=== PATIENT | female | born 1995 | race Caucasian/White ===

== ENCOUNTER 2019-01-03 22:07 | Emergency (ER) | payer OTHER ==
[2019-01-03 22:30] VITALS: BP 123/64; PULSE 80; TEMP 98.5; BMI 31.5
--- NOTE | 2019-01-03 22:52 | PDOC ---
History of Present Illness - General Chief Complaint: Back Pain Stated Complaint: BACK PAIN Time Seen by Provider: 01/03/19 22:32 - History of Present Illness Initial Comments: 01/03/19 22:47 CHIEF COMPLAINT: low back pain HISTORY OF PRESENT ILLNESS: 23 yo F presents to ED with severe low back pain that began an hour ago. Patient reports she had an epidural one month ago during delivery of her baby and since then she has had back issues. She states that she went to lift the baby an hour ago and suddenly developed severe back pain and almost could not walk. Patient denies loss of bowel or bladder function, loss of sensation to b/l legs. Patient denies . No recent travel or sick contacts. PAST MEDICAL HISTORY: Denies past medical history FAMILY HISTORY: Denies SOCIAL HISTORY: Denies tobacco, alcohol, illicit drug use. SURGICAL HISTORY: Denies ALLERGIES: No known drug allergies REVIEW OF SYSTEMS General/Constitutional: Denies fever or chills. Denies weakness, weight change. HEENT: Denies change in vision. Denies ear pain or discharge. Denies sore throat. Cardiovascular: Denies chest pain or shortness of breath. Respiratory: Denies cough, wheezing, or hemoptysis. Gastrointestinal: Denies nausea, vomiting, diarrhea or constipation. Denies rectal bleeding. Genitourinary: Denies dysuria, frequency, or change in urination. Musculoskeletal: Severe low back pain x 1 hour. Denies joint or muscle swelling or pain. Denies neck or back pain. Skin and breasts: Denies rash or easy bruising. Neurologic: Denies headache, vertigo, loss of consciousness, or loss of sensation. PHYSICAL EXAM General Appearance: Uncomfortable appearing, tearful. Appropriately dressed. No apparent distress. HEENT: EOMI, PERRLA, normal ENT inspection, normal voice, TMs normal, pharynx normal. No conjunctival pallor. No photophobia, scleral icterus. Neck: Supple. Trachea midline. No tenderness, rigidity, carotid bruit, stridor , lymphadenopathy, or thyromegaly. Respiratory/Chest: Lungs CTAB. No shortness of breath, chest tenderness, respiratory distress, accessory muscle use. No crackles, rales, rhonchi, stridor , wheezing, dullness Cardiovascular: RRR. S1, S2. No JVD, murmur, bradycardia, tachycardia. Vascular Pulses: Dorsalis-Pedis (R): 2+, Dorsalis-Pedis (L): 2+ Gastrointestinal/Abdominal: Normal bowel sounds. Abdomen soft, non-distended. No tenderness or rebound tenderness. No organomegaly, pulsatile mass, guarding , hernia, hepatomegaly, splenomegaly. Musculoskeletal/Extremities: Tenderness to midline spine and paravertebral muscles at L3-L5. Full sensation to b/l lower extremities, no saddle anesthesia. Pain with active and passive ROM to b/l legs, full ROM appreciated. Pelvis Stable. No CVA tenderness. Integumentary: Appropriate color, dry, warm. No cyanosis, erythema, jaundice or rash Neurologic: surgical scrub technician II-XII intact. Fully oriented, alert. Appropriate mood/affect. Motor strength 5/5. No appreciable EOM palsy, facial droop or sensory deficit. Past History - Past Medical History Allergies/Adverse Reactions: Allergies Allergy/AdvReac Type Severity Reaction Status Date / Time No Known Allergies Allergy Verified 01/03/19 22:25 Home Medications: Ambulatory Orders Nitrofurantoin Monohyd/M-Cryst [Macrobid -] 100 mg PO BID #14 capsule 01/04/19 COPD: No - Suicide/Smoking/Psychosocial Hx Smoking History: Never smoked Have you smoked in the past 12 months: No Information on smoking cessation initiated: No Hx Alcohol Use: No Drug/Substance Use Hx: No *Physical Exam - Vital Signs Last Vital Signs Temp Pulse Resp BP Pulse Ox 98.5 F 80 18 123/64 100 01/03/19 22:23 01/03/19 22:23 01/03/19 22:23 01/03/19 22:23 01/03/19 22:23 Medical Decision Making - Medical Decision Making 01/03/19 22:52 23 yo F presents to ED with severe low back pain that began an hour ago. 01/04/19 01:21 -toradol, valium -Lspine CT 01/04/19 01:21 UA positive for 28 WBC, will treat for UTI 01/04/19 01:[address] 01/04/19 01:34 Patient continues to be in significant pain. Will give Percocet for pain control. 01/04/19 01:57 Case discussed in detail with oncoming emergency provider including history, physical exam and ancillary studies. In brief, this patient is being seen in the ED for a chief complaint of: low back pain I have reviewed the following results: urine Pending results: CT Plan for disposition as follows: pending Resident MD Hudson has assumed care for the patient and will complete the evaluation and treatment. *DC/Admit/Observation/Transfer Diagnosis at time of Disposition: Urinary tract infection Qualifiers: Urinary tract infection type: site unspecified Hematuria presence: without hematuria Qualified Code(s): N39.0 - Urinary tract infection, site not specified Back pain Qualifiers: Back pain location: low back pain Chronicity: acute - Prescriptions Prescriptions: Nitrofurantoin Monohyd/M-Cryst [Macrobid -] 100 mg PO BID #14 capsule - Referrals - Patient Instructions - Post Discharge Activity
[2019-01-03] MEDS ORDERED: diazePAM 5 MG TABLET PO ONE (22:54)
[2019-01-03] MEDS ORDERED: KETOROLAC TROMETHAMINE 60 MG/2 ML VIAL IM ONE (22:54)
[2019-01-03] MEDS ORDERED: KETOROLAC TROMETHAMINE 60 MG/2 ML VIAL ONE (23:02)
[2019-01-03] MEDS ORDERED: diazePAM 5 MG TABLET ONE (23:03)
[2019-01-03 23:50] LABS: HYALINE CASTS 24 /lpf (0-8); URINE APPEARANCE CLEAR; URINE BACTERIA 211.2 /hpf (NEGATIVE); URINE BILIRUBIN NEGATIVE (NEGATIVE); URINE COLOR YELLOW; URINE GLUCOSE (UA) NEGATIVE (NEGATIVE); URINE KETONE NEGATIVE (NEGATIVE); URINE LEUK ESTERASE 1+ (NEGATIVE); URINE NITRITE NEGATIVE (NEGATIVE); URINE PROTEIN TRACE (NEGATIVE); URINE RBC 8 /hpf (0-4); URINE UROBILINOGEN 0.2 mg/dL (0.2-1.0); URINE WBC 28 /hpf (0-5)
--- NOTE | 2019-01-04 01:54 | PDOC ---
*Physical Exam - Vital Signs Last Vital Signs Temp Pulse Resp BP Pulse Ox 98.5 F 80 18 123/64 100 01/03/19 22:23 01/03/19 22:23 01/03/19 22:23 01/03/19 22:23 01/03/19 22:23 - Physical Exam Comments: MDM: *Reviewed vital signs, nursing notes, and prior visit documentation (if available). Received sign out from ARIES Mcmahon. In short, pt is 23 y/o female presenting for episode of acute sharp lower back pain that started after bending over. S/p spinal epidural for one month ago. UA remarkable for leukocyte esterase and pyuria. Urine culture pending. Prescription for Nitrofurantoin sent to pts pharmacy. Will f/u on pending lumbar CT. Lumbar CT unremarkable for acute pathology. Pt reassessed. Reports pain has improved after receiving Percocet. Able to stand and walk with some assistance. Pain is paraspinal without midline tenderness. No overlying skin lesions. Suspect MSK strain. Denies red flag symptoms. Discussed imaging and laboratory results with pt. Answered all questions. Provided return precautions. Pt expressed verbal understanding and agreement with plan to discharge home with outpatient follow up. Provided a copy of today s results. Devonte Hudson M.D., PGY2 Emergency Medicine Resident ED Treatment Course - ADDITIONAL ORDERS Additional order review: Laboratory Results 01/03/19 01/03/19 22:45 22:45 Urine Color Yellow Urine Appearance Clear Urine pH 5.0 Ur Specific [place] 1.024 Urine Protein Trace Urine Glucose (UA) Negative Urine Ketones Negative Urine Blood Trace Urine Nitrite Negative Urine Bilirubin Negative Urine Urobilinogen 0.2 Ur Leukocyte Esterase 1+ H Urine WBC (Auto) 28 Urine RBC (Auto) 8 Urine Casts (Auto) 24 U Epithel Cells (Auto) 4.0 Urine Bacteria (Auto) 211.2 Urine HCG, Qual Negative - RADIOLOGY Radiograph Interpretation: Non-con Lumbar Spine CT: THIS IS A PRELIMINARY REPORT FROM [facility] DATE OF SERVICE: 2019-01-04 01:12:13 IMAGES: 465 EXAM: CT LUMBAR SPINE WITHOUT INTRAVENOUS CONTRAST. HISTORY: Low back pain ?1 month COMPARISON: None. FINDINGS: 1. No acute fracture, acute subluxation or significant degenerative disc disease evident. There is a normal lumbar lordosis. No significant central or neural foraminal narrowing demonstrated. One or more of the following dose reduction techniques were used: automated exposure control, adjustment of the mA and/or kV according to patient size, use of iterative reconstructive technique. THIS DOCUMENT HAS BEEN ELECTRONICALLY SIGNED Home Mercedes M.D 01/04/2019 01:50 EST - Medications Given in the ED: ED Medications Discontinued Medications Generic Name Dose Route Start Last Admin Trade Name Vinay PRN Reason Stop Dose Admin Diazepam 5 mg 01/03/19 22:54 01/03/19 23:06 Valium - PO 01/03/19 22:55 5 mg ONCE ONE Administration Ketorolac Tromethamine 60 mg 01/03/19 22:54 01/03/19 23:06 Toradol Injection - IM 01/03/19 22:55 60 mg ONCE ONE Administration Oxycodone/Acetaminophen 2 combo 01/04/19 01:34 01/04/19 01:52 Percocet 5/325 - PO 01/04/19 01:35 2 combo ONCE ONE Administration *DC/Admit/Observation/Transfer Diagnosis at time of Disposition: Urinary tract infection Qualifiers: Urinary tract infection type: site unspecified Hematuria presence: without hematuria Qualified Code(s): N39.0 - Urinary tract infection, site not specified Back pain Qualifiers: Back pain location: low back pain Chronicity: acute Back pain laterality: bilateral Sciatica presence: without sciatica Qualified Code(s): M54.5 - Low back pain - Discharge Dispostion Disposition: HOME Condition at time of disposition: Improved Decision to Admit order: No - Prescriptions Prescriptions: Nitrofurantoin Monohyd/M-Cryst [Macrobid -] 100 mg PO BID #14 capsule - Referrals - Patient Instructions Printed Discharge Instructions: DI for Low Back Pain Additional Instructions: You were seen today for lower back pain after being over today. The CT scan of your back did not show anything abnormal. Your pain is likely a muscle pain from lifting your child and after carrying your for the past several months. You can take over the counter Tylenol or Advil as needed for pain. Take as directed on the package insert. Do not exceed the recommended dosage. Your urine test showed a possible urinary tract infection. This is not likely to be the cause of your back pain. I have sent an antibiotic prescription to your pharmacy. Take as directed on the package insert. Do not take more than the recommended dose. Follow up with your primary care doctor within the next 3-4 days. You will need to call to make an appointment. The number is included in this packet. A copy of todays results are attached to this packet. Take it to the appointment so your doctor can review them. Go to the nearest emergency department if your condition worsens or you feel like you need additional emergency evaluation. Print Language: WELSH - Post Discharge Activity Forms/Work/School Notes: Back to Work
== END 2019-01-04 03:37 | disposition home or self-care (01) ==
LOC: EDBD → JER 22:07
PROC: 3E0233Z Introduction of Anti-inflammatory into Muscle, Percutaneous Approach (ICD-10-PCS; principal; 2019-01-03)
DX: N39.0 Urinary tract infection, site not specified (principal); M54.5 Low back pain
CPT/HCPCS: 72131-TC; 81003; 84703; 99283-25